=== PATIENT | female | born 1970 | race Caucasian/White ===

== ENCOUNTER 2016-09-27 05:21 | Day surgery (SDC) | payer BC ==
[~2016-09-27] VITALS: Ht 162.6 cm; Wt 67.2 kg
--- NOTE | 2016-10-07 20:44 | OR ---
ADMIT: 09/27/2016 RM/LOC: [facility] MR#: [id number] [address] [facility] [address] [place], [place] [id number] DEBI MARAVILLA [address] [place] [address] Operative/Delivery Room Report SEX: F AGE: 45 : 1970 Corrected: 10/01/2016 0643 nj SURGERY DATE: 09/27/2016 SURGEON: Nelson Navarrete MD PREOPERATIVE DIAGNOSES: Hiatal hernia with refractory gastroesophageal reflux disease. POSTOPERATIVE DIAGNOSES: Hiatal hernia with refractory gastroesophageal reflux disease. PROCEDURE: Laparoscopic hiatal hernia repair with Evan fundoplication. EDITORIAL INTERN: Ramo Hurst MD, whose assistance was necessary for laparoscopic visualization and tissue retraction. ANESTHESIA: General. ESTIMATED BLOOD LOSS: 50 mL. DESCRIPTION OF PROCEDURE: The patient was taken to the operating room and placed supine on the operating room table. General anesthesia was established. The abdomen was prepped and draped in the standard surgical fashion. A 1 cm supraumbilical incision was made in the skin. The fascia was grasped with Dany clamp, and a Veress needle was advanced into the peritoneal cavity. Carbon dioxide was used to insufflate the abdomen to 15 mmHg pressure. The Veress needle was withdrawn, and a 10 mm blunt-tipped trocar was placed. Laparoscope was advanced and showed intraperitoneal position with no damage to underlying structures. Next, 5 mm right upper quadrant, left upper quadrant, and left lateral ports were placed under visualization. The Cynthia liver retractor was advanced from a 5 mm subxiphoid incision and used to retract the left lobe of the liver. The gastrohepatic ligament was divided in the avascular plane to the right crura. The right crura was skeletonized and the mediastinal attachments of hernia sac were carefully freed to allow complete reduction into the abdomen. Anterior and posterior vagus nerves were identified. Dissection proceeded anteriorly over to the left crura. The sac attachments again were completely freed from the mediastinum. Next, the fundus was mobilized in its entirety with division of the short gastric vessels with Harmonic Scalpel. This allowed complete exposure of the left posterior crura. A retroesophageal space was created under visualization to allow passage of a posterior fundal limb. The crural repair was then performed in a posterior-to- anterior fashion with 0 Surgidac suture and the Endo Stitch device. This allowed adequate approximation without tension on the repair. Next, a floppy 360 degree Evan gastric fundoplication was performed. This was performed with 2 separate 0 Surgidac sutures placed at the GE junction for a distance of 1.5 cm. These sutures incorporated partial thickness bites at this level to ADMIT: 09/27/2016 RM/LOC: [facility] MR#: [id number] [address] [place] [id number] [place] [address] Operative/Delivery Room Report SEX: F AGE: 45 : 1970 maintain fixation of the wrap. There was no torsion or tension upon completion of the wrap. The inspection of the abdomen revealed no bleeding or other abnormality. The Cynthia liver retractor was withdrawn. The ports were removed under visualization were without evidence of bleeding. The fascial margin at the 10 mm port site was approximated with the suture passer and an 0 Vicryl tie. The abdomen was allowed to deflate. Skin edges were approximated with 4-0 Monocryl in a subcuticular fashion and Dermabond. Local anesthetic was injected at the incisions. Sponge, needle, and instrument counts were correct at the end of the case. The patient tolerated the procedure well and transferred to the recovery area in stable condition. Nelson Navarrete MD/ jose eduardo JOB #: [id number] CC: Nelson Navarrete, Attending Physician FAMILY PHYSICIAN, Family Physician Corrected: 10/01/2016 0643 njv
== END 2016-09-27 12:30 | disposition home or self-care (01) ==
LOC: SSS 05:21
PROC: 0BQR4ZZ (ICD-10-PCS; principal; 2016-09-27)
DX: K44.9 Diaphragmatic hernia without obstruction or gangrene (principal); K21.9 Gastro-esophageal reflux disease without esophagitis; K20.9 Esophagitis, unspecified; Z98.890 Other specified postprocedural states; Z98.51 Tubal ligation status